=== PATIENT | female | born 1990 | race Two or more races ===

== ENCOUNTER 2024-08-28 19:11 | Emergency (ER) | payer MEDICAID, OTHER ==
[~2024-08-28] VITALS: Ht 162.6 cm; Wt 139.4 kg
[2024-08-28 21:51] LABS: COVID19 ANTIGEN SOFIA FIA NEGATIVE (NEGATIVE); Rapid Influenza A Negative (Negative); Rapid Influenza B Negative (Negative)
[2024-08-28] MEDS ORDERED: AMOX500C2 PO (22:40)
--- NOTE | 2024-08-28 22:40 | ED.PDOC ---
Eye-HPI Chief Complaint: Flu like Time Seen by MD: 20:06 Reviewed Notes: Nurses Notes, Medications, Allergies Allergies: Coded Allergies: Ibuprofen (Verified Allergy, Unknown, 08/28/24) Information Source: Patient Mode of Arrival: Ambulatory EENT DIFF Eye: N/A Sore Throat: Streptococcal X-Ray, Labs, Meds, VS Vital Signs Date Time Temp Pulse Resp B/P (MAP) Pulse Ox O2 Delivery O2 Flow Rate FiO2 08/28/24 19:40 98.2 104 18 126/73 (90) 99 Lab Test 08/28/24 21:05 Range/Units Influenza Type A Antigen Negative Negative Influenza Type B Antigen Negative Negative SARS-CoV-2 Antigen (Rapid) Negative NEGATIVE Time of 1ST Reevaluation: 22:37 Reevaluation 1ST: Improved Patient Education/Counseling: Diagnosis, Treatment, Prognosis, Need For Follow Up Family Education/Counseling: No Family Present Departure 1 Departure Time of Disposition: 22:37 Impression: Primary Impression: Acute pharyngitis Qualified Codes: J02.9 - Acute pharyngitis, unspecified Disposition: 01 HOME / SELF CARE / HOMELESS Condition: Stable e-Prescriptions Amoxicillin Trihydrate (Amoxicillin) 500 Mg Cap 1 CAP PO BID for 7 Days, #20 CAP Prov: FRANCISCO MENDEZ 08/28/24 Discharged With: Self Critical Care Note Critical Care Time?: No Stability Stability form required: FRANCISCO Cervantes Aug 28, 2024 22:40
[2024-08-28 22:54] VITALS: BP 142/82; PULSE 92; RESP 18; TEMP 97.9; O2SAT 100
== END 2024-08-28 22:56 | disposition home or self-care (01) ==
LOC: ER 19:11 → EDBD 19:11 → ER 22:56
DX: J02.9 Acute pharyngitis, unspecified (principal); Z88.6 Allergy status to analgesic agent; Z20.822 Contact with and (suspected) exposure to COVID-19
CPT/HCPCS: 36415; 87426; 87804